=== PATIENT | female | born 1945 | race Caucasian/White ===

== ENCOUNTER 2017-04-03 18:46 | Observation (INO) ==
[2017-04-03] MEDS ORDERED: methylPREDNISolone 125 MG/2 ML VIAL IVP ONE (19:39)
--- NOTE | 2017-04-03 20:01 | Emergency Department Note ---
Disposition Clinical Impression: Community acquired pneumonia Qualifiers: Laterality: left Lung location: lower lobe of lung Qualified Code(s): J18.1 - Lobar pneumonia, unspecified organism Disposition: Admitted As Inpatient Condition: Good Referrals: Daya Crouch MD [Primary Care Provider] - Forms: ED Satisfaction Letter SOB HPI - General Chief Complaint: ED Shortness of Breath/Dyspnea Stated Complaint: Cough onset 1 week, diagnosed pneumonia urgent car Time Seen by Provider: 04/03/17 19:13 Source: patient, other (urgent care report) Mode of arrival: private vehicle Limitations: no limitations Nursing Notes Reviewed: Yes Vital Signs Reviewed: Yes - History of Present Illness Patient presents to the ED on referral from urgent care for cough and shortness of breath. Patient states symptoms been going on for 1 week. Cough is productive of yellow sputum. No chest pain. She has had some nausea but no vomiting or diarrhea or abdominal pain. She has had a rhinorrhea and sore throat as well as some chills but no fever. Denies any leg swelling. She is not a smoker. She does have a history of COPD and asthma. States she used her last 3 albuterol nebs at home earlier this week but then ran out and did not have money to get more. No history of CHF or CAD. At urgent care EKG was performed which showed a sinus rhythm with frequent PACs. This is unchanged when compared to a prior EKG from 2016. Chest x-ray at urgent care showed a left mid to lower lobe pneumonia. Patient was given a gram of Rocephin and 1 DuoNeb at urgent care. States she has been taking Mucinex DM at home as well without improvement. She is sent here from urgent care for further evaluation because she did not feel well enough to go home and wished to be admitted. Patient states she has no money to get any prescriptions filled currently. - Related Data Home Medications Medication Instructions Recorded Confirmed Albuterol Neb [Proventil Neb] 2.5 mg IH Q4HR 04/15/15 04/03/17 Citalopram [CeleXA] 20 mg PO DAILY 04/15/15 04/03/17 Metformin [Glucophage] 1,000 mg PO BIDWM 04/15/15 04/03/17 Metoprolol [Lopressor] 37.5 mg PO BID 04/15/15 04/03/17 TraZODone 100 mg PO HS 04/15/15 04/03/17 Cyclobenzaprine [Flexeril] 10 mg PO HS 05/04/15 04/03/17 Aspirin [Adult Low Dose Aspirin EC] 81 mg PO QAM 05/25/15 04/03/17 Losartan Potassium [Cozaar] 100 mg PO DAILY 05/25/15 04/03/17 Montelukast [Singulair] 10 mg PO DAILY 05/25/15 04/03/17 Potassium Gluconate [Potassium] 99 mg PO QAM 05/25/15 04/03/17 clonazePAM [Klonopin] 1 mg PO QID 04/03/17 04/03/17 Previous Rx's Medication Instructions Recorded Albuterol Sulfate [Albuterol 2 puff IH QID 2 Days inhaler 04/18/15 Inhaler] Allergies Allergy/AdvReac Type Severity Reaction Status Date / Time No Known Allergies Allergy Verified 04/03/17 17:14 Constitutional: Reports: chills. Denies: fever, weakness, weight change Eyes: Denies: eye pain, eye discharge, vision change ENT ED: Reports: throat pain. Denies: ear pain, dental pain, hearing loss, epistaxis, congestion, dysphagia Cardiovascular: Denies: chest pain, palpitations, dyspnea on exertion, edema, syncope Respiratory: Reports: cough, dyspnea, sputum production. Denies: wheezes, hemoptysis, stridor Gastrointestinal: Denies: abdominal pain, nausea, vomiting, diarrhea, constipation, hematemesis, melena, hematochezia Genitourinary: Denies: dysuria, frequency, hematuria, discharge Musculoskeletal: Denies: back pain, neck pain, arthralgia, myalgia Integumentary: Denies: rash, abrasion, lesions Neurological: Denies: headache, weakness, numbness, paresthesias, confusion, abnormal gait, vertigo Psychiatric: Denies: anxiety, depression, suicidal thoughts, homicidal thoughts , auditory hallucinations, visual hallucinations Endocrine: Denies: fatigue Hematological/Lymphatic: Denies: easy bleeding, easy bruising Allergic/Immunologic: Denies: facial swelling, urticaria Past Medical History - Past Medical History Medical history: Reports: atrial fibrillation, diabetes, hypertension Psychiatric history: Reports: anxiety, depression 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: bilateral tubal 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 Absent: tonsillomegaly, tonsillar exudate, R peritonsillar mass, L peritonsillar mass - Neck Neck exam: Present: normal inspection, full ROM, trachea midline. Absent: lymphadenopathy - Chest Chest inspection: Present: normal inspection, symmetric chest wall rise - Respiratory Respiratory exam: Present: normal lung sounds bilaterally. Absent: respiratory distress - Cardiovascular Cardiovascular exam: Present: regular rate, normal rhythm, normal heart sounds - Abdominal Exam Abdominal exam: Present: soft, Non-Tender. Absent: tenderness, distention, guarding, rebound, rigidity - Extremities Exam Extremities exam: Present: normal inspection, full ROM. Absent: tenderness, pedal edema - Back Exam Back exam: Present: normal inspection, full ROM. Absent: tenderness, CVA tenderness (R), CVA tenderness (L) - Neurological Exam Neurological exam: Present: alert, oriented X3 - Psychiatric Psychiatric exam: Present: normal affect, normal mood - Skin Skin exam: Present: warm, dry, intact, normal color Course Course Narrative: Patient presents to the ED with productive cough, chills and worsening dyspnea for 1 week with history of COPD. Chest x-ray at urgent care shows a left mid to lower lobe pneumonia. On arrival here she is not in any respiratory distress. Breath sounds are slightly diminished on the left there is no current wheezing. She is afebrile. We will check routine labs and give a dose of steroids. Given her underlying COPD she may require admission for further management of her pneumonia. - Reevaluation(s) Reevaluation #1: CBC is normal without leukocytosis. Creatinine is slightly elevated although this could be a baseline for her. BNP is minimally elevated the chest x-ray does not show any fluid overload. Troponin is negative. I spoke to the hospitalist, Dr. Weinstein, who has agreed to admit the patient. Vital Signs Temperature 97.8 F 04/03/17 18:49 Pulse Rate 81 04/03/17 18:49 Respiratory Rate 16 04/03/17 18:49 Blood Pressure 147/66 04/03/17 18:49 O2 Sat by Pulse Oximetry 100 04/03/17 18:49 Temperature 97.8 F 04/03/17 18:49 Pulse Rate 67 04/03/17 20:45 Respiratory Rate 16 04/03/17 20:45 Blood Pressure 151/61 04/03/17 20:45 O2 Sat by Pulse Oximetry 99 04/03/17 20:45 Oxygen Delivery Oxygen Delivery Room Air Shortness of Breath/Dyspnea - Differential Diagnosis Likely: acute exacerbation of chronic obstructive airways disease, pneumonia, asthma with exacerbation - Medical Records Medical records reviewed: Yes I reviewed the patient's medical records. - Lab Data Lab results reviewed: Yes I reviewed the patient's lab results. Result diagrams: 04/03/17 19:35 04/03/17 19:35 Lab Results 04/03/17 04/03/17 04/03/17 Range/Units 19:35 19:35 19:35 WBC 10.3 (4.3-11.1) K/mcL RBC 3.99 (3.82-4.97) M/mcL Hgb 11.5 (11.5-15.4) g/dL Hct 34.2 L (35.3-44.9) % MCV 85.7 (83.0-100.0) fL MCH 28.8 (28.0-33.3) pg MCHC 33.6 (31.6-35.5) g/dL RDW 13.1 (11.5-14.5) % Plt Count 195 (140-400) K/mcL MPV 11.9 (9.4-12.4) fL Immature Gran % 0.5 (0-4) % Seg Neutrophils % 68.5 % Lymphocytes % 22.7 % Monocytes % 5.5 % Eosinophils % 2.6 % Basophils % 0.2 % Neutrophils # 7.0 (1.6-8.9) K/mcL Lymphocytes # 2.3 (0.6-4.6) K/mcL Monocytes # 0.6 (0.0-1.3) K/mcL Eosinophils # 0.3 (0.0-0.6) K/mcL Basophils # 0.0 (0.0-0.2) K/mcL Sodium 140 (136-145) mEq/L Potassium 3.9 (3.5-4.5) mEq/L Chloride 107 (98-109) mEq/L Carbon Dioxide 21 (19-29) mEq/L BUN 18 (7-20) mg/dL Creatinine 1.37 H (0.57-1.11) mg/dL Est GFR ( Amer) 46 L (> 60) Est GFR (Non-Af Amer) 38 L (> 60) BUN/Creatinine Ratio 13 (6-26) Glucose 76 (70-99) mg/dL Calculated Osmolality 291 (280-300) Calcium 9.6 (8.6-10.8) mg/dL Troponin I 0.01 (0-0.03) ng/mL B-Natriuretic Peptide (0-100) pg/mL 04/03/17 Range/Units 19:35 WBC (4.3-11.1) K/mcL RBC (3.82-4.97) M/mcL Hgb (11.5-15.4) g/dL Hct (35.3-44.9) % MCV (83.0-100.0) fL MCH (28.0-33.3) pg MCHC (31.6-35.5) g/dL RDW (11.5-14.5) % Plt Count (140-400) K/mcL MPV (9.4-12.4) fL Immature Gran % (0-4) % Seg Neutrophils % % Lymphocytes % % Monocytes % % Eosinophils % % Basophils % % Neutrophils # (1.6-8.9) K/mcL Lymphocytes # (0.6-4.6) K/mcL Monocytes # (0.0-1.3) K/mcL Eosinophils # (0.0-0.6) K/mcL Basophils # (0.0-0.2) K/mcL Sodium (136-145) mEq/L Potassium (3.5-4.5) mEq/L Chloride (98-109) mEq/L Carbon Dioxide (19-29) mEq/L BUN (7-20) mg/dL Creatinine (0.57-1.11) mg/dL Est GFR ( Amer) (> 60) Est GFR (Non-Af Amer) (> 60) BUN/Creatinine Ratio (6-26) Glucose (70-99) mg/dL Calculated Osmolality (280-300) Calcium (8.6-10.8) mg/dL Troponin I (0-0.03) ng/mL B-Natriuretic Peptide 121 H (0-100) pg/mL - Radiology Data Radiology results reviewed: Yes I reviewed the patient's radiology results. Chest x-ray performed at urgent care shows opacity in left mid to lower lobe compatible with pneumonia - EKG Data EKG attestation: Yes I reviewed and interpreted this EKG. EKG shows normal: Reports: sinus rhythm Rate: Reports: normal Rhythm: Reports: NSR, PAC's Wiggins/QRS: Reports: normal When compared to previous EKG there are: no significant changes Interpretation: Reports: no acute changes, unchanged when compared to prior tracing (date) (05/25/15), nonspecific ST-T wave changes
[2017-04-03 20:36] LABS: Basophils % 0.2 %; Eosinophils # 0.3 K/mcL (0.0-0.6); Eosinophils % 2.6 %; Hematocrit 34.2 % (35.3-44.9); Hemoglobin 11.5 g/dL (11.5-15.4); Immature Granulocytes % 0.5 % (0-4); Lymphocytes # 2.3 K/mcL (0.6-4.6); Lymphocytes % 22.7 %; Mean Corpuscular HGB Conc 33.6 g/dL (31.6-35.5); Mean Corpuscular Hemoglobin 28.8 pg (28.0-33.3); Mean Corpuscular Volume 85.7 fL (83.0-100.0); Mean Platelet Volume 11.9 fL (9.4-12.4); Monocytes # 0.6 K/mcL (0.0-1.3); Monocytes % 5.5 %; Platelet Count 195 K/mcL (140-400); Red Blood Count 3.99 M/mcL (3.82-4.97); Red Cell Distribution Width 13.1 % (11.5-14.5); Segmented Neutrophils % 68.5 %
[2017-04-03 20:53] LABS: Calcium 9.6 mg/dL (8.6-10.8); Potassium 3.9 mEq/L (3.5-4.5)
[2017-04-03] MEDS ORDERED: Naloxone 0.4 MG/ML INJ IVP PRN ×2 (22:22→23:30)
[2017-04-03] MEDS ORDERED: 0.9 % Sodium Chloride 1,000 ML IVC SCH (22:30)
[2017-04-03] MEDS ORDERED: D5% in Water 1,000 ML IVC PRN (23:30)
[2017-04-03] MEDS ORDERED: *HR* Dextrose 50 % in Water (Syg) 50 ML SYRINGE IVP PRN (23:30)
[2017-04-03] MEDS ORDERED: Dextrose Gel 15 GM PO PRN ×2 (23:30)
[2017-04-04] MEDS: 0.9 % Sodium Chloride 1,000 ML IVC SCH ×2 (01:33→14:04)
[2017-04-04] MEDS: Ipratropium/Albuterol Neb 3 ML IH SCH ×3 (02:58→12:39)
[2017-04-04] MEDS ORDERED: *HR* Metformin 500 MG TABLET PO SCH (08:00)
[2017-04-04] MEDS: Insulin LISPRO 300 UNITS/3 ML VIAL SQ SCH ×3 (08:41→17:18)
[2017-04-04] MEDS: clonazePAM 0.5 MG TABLET PO SCH ×3 (08:43→20:27)
[2017-04-04] MEDS: Aspirin Enteric Coated 81 MG Tablet PO SCH (08:44)
[2017-04-04] MEDS: (Potassium Gluconate [Potassium] 99 MG) PO SCH (08:46)
[2017-04-04] MEDS ORDERED: Benzonatate 100 MG CAPSULE PO PRN (09:02)
[2017-04-04] MEDS: *HR* Pioglitazone 15 MG TABLET PO SCH (10:25)
--- NOTE | 2017-04-04 15:59 | Internal Med History&Physical ---
Date of Encounter: 04/04/17 Time of Encounter: 15:15 Assessment and Plan (1) Pneumonia Current visit: No Status: Acute She will be given Rocephin and Zithromax with lactobacillus. Chest CT will be done to further evaluate. Qualifiers: Pneumonia type: due to unspecified organism Laterality: left Lung location: unspecified part of lung Qualified Code(s): J18.9 - Pneumonia, unspecified organism (2) CKD (chronic kidney disease) stage 3, GFR 30-59 ml/min Current visit: Yes Status: Acute We will monitor renal indices as needed. (3) Hypertension Current visit: Yes Status: Acute Qualifiers: Qualified Code(s): I10 - Essential (primary) hypertension (4) DM type 2 (diabetes mellitus, type 2) Current visit: Yes Status: Chronic Continue metformin and Actos. Will do Accu-Cheks with SSI. Qualifiers: Diabetes mellitus complication status: with kidney complications Diabetes mellitus complication detail: with chronic kidney disease Diabetes mellitus skilled nursing insulin use: without termite control servicer use Chronic kidney disease stage: stage 3 (moderate) Qualified Code(s): E11.22 - Type 2 diabetes mellitus with diabetic chronic kidney disease; N18.3 - Chronic kidney disease, stage 3 ( moderate); N18.3 - Chronic kidney disease, stage 3 (moderate) (5) Weight loss Current visit: Yes Status: Acute TSH was normal at 3.600 on 12/12/2016. Will proceed with chest CT to further evaluate. Internal Medicine - H&P: HPI Chief complaint: cough Admitted From: Emergency Dept Plans for Post Hospital Care: Home History of present illness: Ms. Toro is a 71 year old female who came to emergency room from a local urgent care stating she had one week history of cough productive of yellow sputum. She had diarrhea and chills but denies vomiting or pain in her abdomen or chest. She was diagnosed with left lung pneumonia at urgent care and referred to emergency room. She was admitted to [facility] floor for ongoing care needs. She states she smoked from age [age] a total of 34 years up to 1 pack per day. She had PFTs many years ago and was told she had asthma and COPD. She does not wear home oxygen. Past Med Surg Social Fam HX - Past Medical History Medical history: atrial fibrillation, cancer, diabetes, hypertension Psychiatric history: anxiety, depression - Social History Smoking Status: Never smoker Smokeless Tobacco Status: No Alcohol use: none Drug use: none Internal Medicine - H&P: Meds Albuterol Neb [Proventil Neb] 2.5 mg IH Q4HR 04/15/15 [History] Citalopram [CeleXA] 20 mg PO DAILY 04/15/15 [History] Metformin [Glucophage] 1,000 mg PO BIDWM 04/15/15 [History] Metoprolol [Lopressor] 37.5 mg PO BID 04/15/15 [History] TraZODone 100 mg PO HS 04/15/15 [History] Albuterol Sulfate [Albuterol Inhaler] 2 puff IH QID 2 Days inhaler 04/18/15 [Rx ] Cyclobenzaprine [Flexeril] 10 mg PO HS 05/04/15 [History] Aspirin [Adult Low Dose Aspirin EC] 81 mg PO QAM 05/25/15 [History] Losartan Potassium [Cozaar] 100 mg PO DAILY 05/25/15 [History] Montelukast [Singulair] 10 mg PO DAILY 05/25/15 [History] Potassium Gluconate [Potassium] 99 mg PO QAM 05/25/15 [History] clonazePAM [Klonopin] 1 mg PO QID 04/03/17 [History] Pioglitazone [Actos] 45 mg PO DAILY 04/04/17 [History] 3 Allergy/AdvReac Type Severity Reaction Status Date / Time No Known Allergies Allergy Verified 04/03/17 17:14 All Systems PM: A 10-system review of systems was performed and is negative for pertinent findings except as documented above in the HPI. Review of systems: Gen.: She states her weight has decreased approximately 12 pounds in the past week. She states she has not been eating much in the past week due to present illness. She reports weighing 200 pounds one year ago. Cardiovascular: She has history of hypertension but denies UT heart failure angina DVT or pulmonary embolus. She had limited echocardiogram 01/18/2015 which showed LVEF of 60% with no pericardial effusion present. She had an echocardiogram 10/17/2014 which showed LVEF 55-60% with indeterminant diastolic function. There was mild TR. She had Regadenoson stress test 09/18/2015 which showed frequent PACs, LVEF greater than 70%, small fixed apical inferior and apical fixed defect suggestive of artifact, and perfusion imaging negative for ischemia or infarct. Respiratory: As per history of present illness GI: She has had cholecystectomy. She denies disorders of her liver or exocrine pancreas. : She has been diagnosed with chronic kidney disease stage III. 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 She denies other kidney or bladder disorders Neurologic: She denies large distribution strokes or seizures. Endocrine: She was diagnosed with DM 2 in 1992. She has hyperlipidemia but denies thyroid disease Hematology/oncology: She had right mastectomy April 2014 for breast cancer. She believes it was curative. She denies other internal malignancies or anemia Psychiatric: She has anxiety and depression with panic attacks Musk skeletal: She has chronic low back pain. She denies gout or other bone joint or muscle disorders. - Constitutional Vitals: Temp Pulse Resp BP Pulse Ox 98.2 F 57 16 110/65 98 04/04/17 14:41 04/04/17 14:41 04/04/17 14:41 04/04/17 14:41 04/04/17 14:41 Exam: Gen.: She is a well-developed well-nourished female lying in bed and appears in no acute distress HEENT: Head is atraumatic and normocephalic. Eyes: EOMI. There is no scleral icterus. Mouth: Mucosa is moist. Neck: Supple and nontender. There is no thyromegaly or adenopathy noted. Heart: Regular without murmurs gallops or ectopics Lungs: No wheezes or crackles are heard. Abdomen: Soft and nontender. No masses or guarding are noted. Extremities: There is no cyanosis edema or clubbing noted. Dorsalis pedis and posttibial pulses are 1-2 over 2 bilaterally. Neurologic: Mental status: She is talkative and a good historian. Cranial nerves: Smile is symmetric. Forehead wrinkles bilaterally. Tongue protrudes midline. EOMI. Motor: There is no pronator drift. Cerebellar: Finger to nose is intact bilaterally. Skin: Warm and dry Internal Med - H&P Results - Labs CBC & Chem 7: 04/03/17 19:35 04/03/17 19:35 - VTE Reasons for not Prescribing Prophylaxis: Treatment not Indicated - Low risk for VTE
[2017-04-04] MEDS: Budesonide/Formoterol 160/4.5 MDI IH SCH ×2 (17:41→23:17)
[2017-04-04] MEDS: Benzonatate 100 MG CAPSULE PO SCH (20:27)
[2017-04-04] MEDS ORDERED: traZODone 50 MG TABLET PO SCH (21:00)
[2017-04-04] MEDS ORDERED: Insulin LISPRO 300 UNITS/3 ML VIAL SQ SCH (21:00)
[2017-04-05] MEDS: clonazePAM 0.5 MG TABLET PO SCH ×2 (02:48→10:00)
[2017-04-05 06:37] VITALS: BP 126/97
--- NOTE | 2017-04-05 09:57 | Discharge Summary ---
Date of Encounter: 04/05/17 Time of Encounter: 09:45 - Discharge Diagnosis (1) Pneumonia Priority: Primary Status: Acute Qualifiers: Pneumonia type: due to unspecified organism Laterality: left Lung location: unspecified part of lung Qualified Code(s): J18.9 - Pneumonia, unspecified organism (2) CKD (chronic kidney disease) stage 3, GFR 30-59 ml/min Priority: Secondary Status: Chronic (3) Hypertension Priority: Secondary Status: Chronic Qualifiers: Hypertension type: essential hypertension Qualified Code(s): I10 - Essential (primary) hypertension (4) DM type 2 (diabetes mellitus, type 2) Priority: Secondary Status: Chronic Qualifiers: Diabetes mellitus complication status: with kidney complications Diabetes mellitus complication detail: with chronic kidney disease Diabetes mellitus mcc insulin use: without mcc use Chronic kidney disease stage: stage 3 (moderate) Qualified Code(s): E11.22 - Type 2 diabetes mellitus with diabetic chronic kidney disease; N18.3 - Chronic kidney disease, stage 3 ( moderate); N18.3 - Chronic kidney disease, stage 3 (moderate) (5) Weight loss Priority: Secondary Status: Acute - Discharge Medications Prescriptions: Cefuroxime PO [Ceftin] 500 mg PO Q12HR #10 tablet Azithromycin [Zithromax] 250 mg PO DAILY #5 tablet Benzonatate [Tessalon] 100 mg PO TID #15 capsule Lactobacillus [Culturelle] 1 each PO BID #10 cap.[email or web address] Home Medications: Albuterol Neb [Proventil Neb] 2.5 mg IH Q4HR 04/15/15 [History] Citalopram [CeleXA] 20 mg PO DAILY 04/15/15 [History] Metformin [Glucophage] 1,000 mg PO BIDWM 04/15/15 [History] Metoprolol [Lopressor] 37.5 mg PO BID 04/15/15 [History] TraZODone 100 mg PO HS 04/15/15 [History] Albuterol Sulfate [Albuterol Inhaler] 2 puff IH QID 2 Days inhaler 04/18/15 [Rx ] Cyclobenzaprine [Flexeril] 10 mg PO HS 05/04/15 [History] Aspirin [Adult Low Dose Aspirin EC] 81 mg PO QAM 05/25/15 [History] Losartan Potassium [Cozaar] 100 mg PO DAILY 05/25/15 [History] Montelukast [Singulair] 10 mg PO DAILY 05/25/15 [History] Potassium Gluconate [Potassium] 99 mg PO QAM 05/25/15 [History] clonazePAM [Klonopin] 1 mg PO QID 04/03/17 [History] Pioglitazone [Actos] 45 mg PO DAILY 04/04/17 [History] Azithromycin [Zithromax] 250 mg PO DAILY #5 tablet 04/05/17 [Rx] Benzonatate [Tessalon] 100 mg PO TID #15 capsule 04/05/17 [Rx] Budesonide/Formoterol 160/4.5 [Symbicort 160/4.5] 2 puff IH BIDR 5 Days inhaler 04/05/17 [Rx] Cefuroxime PO [Ceftin] 500 mg PO Q12HR #10 tablet 04/05/17 [Rx] Lactobacillus [Culturelle] 1 each PO BID #10 cap.sprink 04/05/17 [Rx] Allergies/Adverse Reactions: 3 Allergy/AdvReac Type Severity Reaction Status Date / Time No Known Allergies Allergy Verified 04/03/17 17:14 Procedures/tests Complete & Pending: Procedures Performed prior 72 hours Category Date Time Status CT chest wo con [CT] Routine Cat Scan 04/04/17 15:52 Completed Date of admission: 04/03/17 22:26 Primary care physician: Daya Crouch Consults: 04/04/17 00:01 Consult to Nutrition [CONS] Routine Comment: Consulting Provider: NUTRITION Reason for Dietary Consult: MST Score - Patient Status Disposition: Home, Self-Care Condition: Good Functional capacity at discharge: independent ambulation Overall status at discharge: patient is progressing back to baseline - Discharge Instructions Follow Up With: Daya Crouch MD [Primary Care Provider] - 1 week - Diet and Activity Activity: resume usual activities as tolerated Diet: advance to your usual diet Hospital course: Ms. Toro is a 71 year old female who came to emergency room from a local urgent care stating she had one week history of cough productive of yellow sputum. She had diarrhea and chills but denies vomiting or pain in her abdomen or chest. She was diagnosed with left lung pneumonia at urgent care and referred to emergency room. She was admitted to [facility] for ongoing care needs. Initial orders written by the emergency room physician. I saw her on April 04 and performed the history and physical. Chest CT was done to further evaluate for pneumonia and weight loss. There was irregular patchy airspace opacities in the superior segment of the left lower lobe. Several small noncalcified nodules in the left lower lobe measuring up to 4 mm most suggestive of an infectious process including fungal and atypical etiologies were noted. Radiographic follow-up until resolution was recommended. I will let her PCP Dr. Crouch order repeat chest CT in a few weeks. She remained stable and felt improved when I saw her on April 05. She will be discharged home and follow with her PCP Dr. Crouch within 1 week. She will be prescribed a 5 day course of antibiotic and probiotic at discharge. She will continue Symbicort inhaler and Tessalon Perles for 5 days also. Room air oximetry will be checked on a 6 minute walk prior to discharge. - Time Spent with Patient Total time spent providing and/or coordinating discharge services: - Constitutional Vitals: Temp Pulse Resp BP Pulse Ox 98.1 F 62 18 126/97 96 04/05/17 06:35 04/05/17 06:35 04/05/17 06:35 04/05/17 06:35 04/05/17 06:35 - VTE Reasons for not Prescribing Prophylaxis: Treatment not Indicated - Low risk for VTE
[2017-04-05] MEDS: Benzonatate 100 MG CAPSULE PO SCH (10:00)
[2017-04-05] MEDS: Aspirin Enteric Coated 81 MG Tablet PO SCH (10:02)
[2017-04-05] MEDS: *HR* Pioglitazone 15 MG TABLET PO SCH (10:03)
[2017-04-05] MEDS: (Potassium Gluconate [Potassium] 99 MG) PO SCH (10:07)
[2017-04-05] MEDS: Budesonide/Formoterol 160/4.5 MDI IH SCH (10:13)
== END 2017-04-05 11:50 | disposition home or self-care (01) ==
LOC: INPPIK 18:46 → EMEROOPIK 18:46 → INPPIK 23:10
PROVIDERS: ADMIT Internal Medicine; ATTEND Internal Medicine

== ENCOUNTER 2017-12-24 01:34 | Observation (INO) ==
[2017-12-24] MEDS ORDERED: 0.9 % Sodium Chloride 500 ML IVC ONE ×2 (01:59→03:03)
--- NOTE | 2017-12-24 02:19 | Emergency Department Note ---
Disposition Clinical Impression: Palpitation, [place]APO[place]ON (acute kidney injury) Disposition: Admitted As Inpatient Condition: Good Forms: ED Satisfaction Letter Arrhythmia/Palpitations HPI - General Chief Complaint: ED Chest Pain Time Seen by Provider: 12/24/17 01:56 Source: patient Mode of arrival: private vehicle Limitations: no limitations Nursing Notes Reviewed: Yes Vital Signs Reviewed: Yes - History of Present Illness HPI Narrative: Patient presents to the ED complaining of palpitations and low back pain. She states she has had a sensation that her heart was racing and skipping beats it started around 8 PM. She states she checked her blood pressure and heart rate at home and her blood pressure was low, 90s over 40s and her heart rate was high , as high as in the 150s around 1 AM. She also complains of low back pain that is a dull ache across her lower back. She states that she has been doing very strenuous housecleaning today which is more active than she has typically been in over a year. She denies any chest pain. She does report some chronic shortness of breath with exertion that has been going on for years and has not changed. She denies any lower extremity swelling. She has had an occasional dry cough. No fever or chills. No lightheadedness or dizziness. No visual disturbances. No nausea or vomiting. She reports a history of A. fib and PE that was diagnosed in July while she was in [place]. Her metoprolol was increased at that time to 100 mg twice a day and she was started on Eliquis. She is already on losartan 100 mg for her hypertension as well. She also took a dose of her usual clonazepam in case her symptoms were due to anxiety. She also has a history of hypothyroidism and is on 25 g of Synthroid. - Related Data Home Medications Medication Instructions Recorded Confirmed Albuterol Neb [Proventil Neb] 2.5 mg IH Q4HR 04/15/15 12/24/17 Metoprolol [Lopressor] 100 mg PO BID 04/15/15 12/24/17 TraZODone 100 mg PO HS 04/15/15 12/24/17 Cyclobenzaprine [Flexeril] 10 mg PO HS 05/04/15 12/24/17 Losartan Potassium [Cozaar] 100 mg PO DAILY 05/25/15 12/24/17 Montelukast [Singulair] 10 mg PO DAILY 05/25/15 12/24/17 Potassium Gluconate [Potassium] 99 mg PO QAM 05/25/15 12/24/17 clonazePAM [Klonopin] 1 mg PO QID 04/03/17 12/24/17 Pioglitazone [Actos] 45 mg PO DAILY 04/04/17 12/24/17 Apixaban [Eliquis] 5 mg PO DAILY 12/24/17 12/24/17 Atorvastatin [Lipitor] 40 mg PO HS 12/24/17 12/24/17 Escitalopram [Lexapro] 20 mg PO DAILY 12/24/17 12/24/17 Gabapentin [Neurontin] 100 mg PO TID 12/24/17 12/24/17 Glimepiride [Amaryl] 4 mg PO BID 12/24/17 12/24/17 Levothyroxine [Synthroid] 25 mcg PO DAILY 12/24/17 12/24/17 Loratadine [Claritin] 10 mg PO DAILY 12/24/17 12/24/17 Previous Rx's Medication Instructions Recorded Albuterol Sulfate [Albuterol 2 puff IH QID 2 Days inhaler 04/18/15 Inhaler] Budesonide/Formoterol 160/4.5 2 puff IH BIDR 5 Days inhaler 04/05/17 [Symbicort 160/4.5] Allergies Allergy/AdvReac Type Severity Reaction Status Date / Time No Known Allergies Allergy Verified 04/03/17 17:14 Constitutional: Denies: fever, chills, weakness, weight change Eyes: Denies: eye pain, eye discharge, vision change ENT ED: Denies: ear pain, throat pain, dental pain, hearing loss, epistaxis, congestion, dysphagia Cardiovascular: Reports: as per HPI, palpitations, dyspnea on exertion. Denies : chest pain, edema, syncope Respiratory: Reports: cough. Denies: dyspnea, wheezes, hemoptysis, stridor, sputum production Gastrointestinal: Denies: abdominal pain, nausea, vomiting, diarrhea, constipation, hematemesis, melena, hematochezia Genitourinary: Denies: dysuria, frequency, hematuria, discharge Musculoskeletal: Denies: back pain, neck pain, arthralgia, myalgia Integumentary: Denies: rash, abrasion, lesions Neurological: Denies: headache, weakness, numbness, paresthesias, confusion, abnormal gait, vertigo Psychiatric: Denies: anxiety, depression, suicidal thoughts, homicidal thoughts , auditory hallucinations, visual hallucinations Endocrine: Denies: fatigue Hematological/Lymphatic: Denies: easy bleeding, easy bruising Allergic/Immunologic: Denies: facial swelling, urticaria Past Medical History - Past Medical History Medical history: Reports: atrial fibrillation, cancer, diabetes, hypertension Psychiatric history: Reports: anxiety, depression 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: bilateral tubal ligation - Social History Smoking Status: Never smoker Smokeless Tobacco Status: No Alcohol use: Reports: none Drug use: Reports: none Physical Exam - General Limitations: no limitations General appearance: alert, in no apparent distress - Head Head exam: atraumatic, normocephalic, normal inspection - Eye Eye exam: Present: normal appearance, PERRL, EOMI - ENT ENT exam: normal exam, normal oropharynx, mucous membranes moist - Neck Neck exam: Present: normal inspection, full ROM, trachea midline - Chest Chest inspection: Present: normal inspection, symmetric chest wall rise - Respiratory Respiratory exam: Present: normal lung sounds bilaterally - Cardiovascular Cardiovascular exam: Present: regular rate, normal rhythm, normal heart sounds - Abdominal Exam Abdominal exam: Present: soft, Non-Tender. Absent: tenderness, distention, guarding, rebound, rigidity - Extremities Exam Extremities exam: Present: normal inspection, full ROM. Absent: tenderness, pedal edema - Back Exam Back exam: Present: normal inspection, full ROM. Absent: tenderness - Neurological Exam Neurological exam: Present: alert, oriented X3 - Psychiatric Psychiatric exam: Present: normal affect, normal mood - Skin Skin exam: Present: warm, dry, intact, normal color Course Course Narrative: Patient presents to the ED complaining of palpitations, low back pain with tachycardia and hypotension at home. On arrival heart rate was in the low 1 teens and initial blood pressure reading was low. On exam she appeared clinically dehydrated. EKG showed a flutter/tachycardia with RVR with a rate of 117. Will check laboratory studies, obtain EKG and try a fluid bolus. Symptoms may be due to dehydration versus true atrial arrhythmia with RVR requiring antiarrhythmics. - Reevaluation(s) Reevaluation #1: Heart rate has decreased and blood pressure has improved with fluid bolus. Patient appears to be fluctuating between A. fib. Chest x-ray is normal. CBC and BMP are unremarkable other than creatinine is increased above her baseline. BNP is only minimally elevated at 109. Troponin and TSH are still pending at this time. Given the patient seems to be responding well to IV fluids and do not feel that antiarrhythmics are warranted. Given her increased creatinine however I feel she would benefit from continued IV fluids including overnight observation for continued hydration and repeat lab work as well as continued monitoring of her heart rate and blood pressure. Discussed these concerns with the patient and she is in agreement. Will await TSH and troponin in case these labs are abnormal and would affect her disposition. Time: 03:05 Reevaluation #2: Troponin is normal. TSH is elevated at 7. Her blood pressure and heart rate have continued to improve. Patient is agreeable to admission for continued IV hydration overnight with repeat laboratory studies in the morning. I spoke to the hospitalist, Dr. Weinstien, who has agreed to accept the patient. She will be given Tylenol for her low back pain. Time: 03:29 Vital Signs Temperature 98.9 F 12/24/17 01:37 Pulse Rate 115 12/24/17 01:37 Respiratory Rate 20 12/24/17 01:37 Blood Pressure 76/41 12/24/17 01:37 O2 Sat by Pulse Oximetry 94 12/24/17 01:37 Temperature 98.8 F 12/24/17 02:35 Pulse Rate 100 12/24/17 03:26 Respiratory Rate 20 12/24/17 03:26 Blood Pressure 122/74 12/24/17 03:26 O2 Sat by Pulse Oximetry 97 12/24/17 03:26 Oxygen Delivery Oxygen Delivery Room Air Arrhythmia/Palpitations - Differential Diagnosis Differential Diagnosis: Likely: palpitations, artial arrhythmia, metabolic/ electrolyte disturbance - Medical Records Medical records reviewed: Yes I reviewed the patient's medical records. - Lab Data Lab results reviewed: Yes I reviewed the patient's lab results. Result diagrams: 12/24/17 02:25 12/24/17 02:25 Lab Results 12/24/17 12/24/17 12/24/17 Range/Units 02:25 02:25 02:25 WBC 12.3 H (4.3-11.1) K/mcL RBC 3.94 (3.82-4.97) M/mcL Hgb 11.4 L (11.5-15.4) g/dL Hct 34.7 L (35.3-44.9) % MCV 88.1 (83.0-100.0) fL MCH 28.9 (28.0-33.3) pg MCHC 32.9 (31.6-35.5) g/dL RDW 13.9 (11.5-14.5) % Plt Count 154 (140-400) K/mcL MPV 11.6 (9.4-12.4) fL Immature Gran % 1.1 (0-4) % Seg Neutrophils % 63.7 % Lymphocytes % 26.8 % Monocytes % 6.4 % Eosinophils % 1.7 % Basophils % 0.3 % Neutrophils # 7.8 (1.6-8.9) K/mcL Lymphocytes # 3.3 (0.6-4.6) K/mcL Monocytes # 0.8 (0.0-1.3) K/mcL Eosinophils # 0.2 (0.0-0.6) K/mcL Basophils # 0.0 (0.0-0.2) K/mcL PT 18.4 H (9.4-12.1) Seconds INR 1.6 APTT 37.6 H (26.0-36.0) Seconds Sodium 136 (136-145) mEq/L Potassium 3.7 (3.5-5.1) mEq/L Chloride 103 (98-107) mEq/L Carbon Dioxide 25 (23-29) mEq/L BUN 23 (8-23) mg/dL Creatinine 1.71 H (0.60-1.20) mg/dL Est GFR ( Amer) 36 L (> 60) Est GFR (Non-Af Amer) 29 L (> 60) BUN/Creatinine Ratio 13 (6-26) Glucose 128 H (70-105) mg/dL Calculated Osmolality 287 (280-300) Calcium 9.1 (8.6-10.3) mg/dL Troponin I < 0.03 (< 0.04) ng/mL B-Natriuretic Peptide (Less than 100) pg/mL TSH (0.340-5.600) mcIU/mL 12/24/17 12/24/17 Range/Units 02:27 02:27 WBC (4.3-11.1) K/mcL RBC (3.82-4.97) M/mcL Hgb (11.5-15.4) g/dL Hct (35.3-44.9) % MCV (83.0-100.0) fL MCH (28.0-33.3) pg MCHC (31.6-35.5) g/dL RDW (11.5-14.5) % Plt Count (140-400) K/mcL MPV (9.4-12.4) fL Immature Gran % (0-4) % Seg Neutrophils % % Lymphocytes % % Monocytes % % Eosinophils % % Basophils % % Neutrophils # (1.6-8.9) K/mcL Lymphocytes # (0.6-4.6) K/mcL Monocytes # (0.0-1.3) K/mcL Eosinophils # (0.0-0.6) K/mcL Basophils # (0.0-0.2) K/mcL PT (9.4-12.1) Seconds INR APTT (26.0-36.0) Seconds Sodium (136-145) mEq/L Potassium (3.5-5.1) mEq/L Chloride (98-107) mEq/L Carbon Dioxide (23-29) mEq/L BUN (8-23) mg/dL Creatinine (0.60-1.20) mg/dL Est GFR ( Amer) (> 60) Est GFR (Non-Af Amer) (> 60) BUN/Creatinine Ratio (6-26) Glucose (70-105) mg/dL Calculated Osmolality (280-300) Calcium (8.6-10.3) mg/dL Troponin I (< 0.04) ng/mL B-Natriuretic Peptide 109 H (Less than 100) pg/mL TSH 7.059 H (0.340-5.600) mcIU/mL - Radiology Data Radiology results reviewed: Yes I reviewed the patient's radiology results. ITS Impressions Chest X-Ray 12/24/17 02:18 IMPRESSION: No acute findings. D/ / Rayna Tee MD / Rayna Tee MD Interpreting Provider: Rayna Tee MD - EKG Data EKG attestation: Yes I reviewed and interpreted this EKG. Rate: tachycardia Rhythm: A. flutter, arrhythmia [place]/QRS: normal When compared to previous EKG there are: changes noted (prior ectopic atrial rhythm with PACs, normal rate)
[2017-12-24 02:44] LABS: INR 1.6; Prothrombin Time 18.4 Seconds (9.4-12.1)
[2017-12-24 02:46] LABS: Activated Partial Thrombo Time 37.6 Seconds (26.0-36.0)
[2017-12-24 02:54] LABS: BUN/Creatinine Ratio 13 (6-26); Basophils % 0.3 %; Blood Urea Nitrogen 23 mg/dL (8-23); Calcium 9.1 mg/dL (8.6-10.3); Carbon Dioxide 25 mEq/L (23-29); Chloride 103 mEq/L (98-107); Eosinophils # 0.2 K/mcL (0.0-0.6); Eosinophils % 1.7 %; Glucose 128 mg/dL (70-105); Hematocrit 34.7 % (35.3-44.9); Hemoglobin 11.4 g/dL (11.5-15.4); Immature Granulocytes % 1.1 % (0-4); Lymphocytes # 3.3 K/mcL (0.6-4.6); Lymphocytes % 26.8 %; Mean Corpuscular HGB Conc 32.9 g/dL (31.6-35.5); Mean Corpuscular Hemoglobin 28.9 pg (28.0-33.3); Mean Corpuscular Volume 88.1 fL (83.0-100.0); Mean Platelet Volume 11.6 fL (9.4-12.4); Monocytes # 0.8 K/mcL (0.0-1.3); Monocytes % 6.4 %; Osmolality,Calculated 287 (280-300); Platelet Count 154 K/mcL (140-400); Potassium 3.7 mEq/L (3.5-5.1); Red Blood Count 3.94 M/mcL (3.82-4.97); Red Cell Distribution Width 13.9 % (11.5-14.5); Segmented Neutrophils % 63.7 %; Sodium 136 mEq/L (136-145); eGFR For Non-African Americans 29 (> 60)
[2017-12-24 02:57] LABS: Neutrophils # 7.8 K/mcL (1.6-8.9)
[2017-12-24 03:01] LABS: Troponin I < 0.03 ng/mL (< 0.04)
[2017-12-24] MEDS ORDERED: Acetaminophen 325 MG TABLET PO ONE (03:26)
[2017-12-24] MEDS ORDERED: Naloxone 0.4 MG/ML INJ IVP PRN ×2 (03:31→04:21)
[2017-12-24] MEDS ORDERED: 0.9 % Sodium Chloride 1,000 ML IVC SCH (03:45)
[2017-12-24] MEDS ORDERED: Albuterol 2.5 MG/3 ML NEBULIZER IH SCH (04:21)
[2017-12-24] MEDS: 0.9 % Sodium Chloride 1,000 ML IVC SCH ×2 (05:16→15:01)
[2017-12-24 06:24] LABS: Calcium 8.5 mg/dL (8.6-10.3); Potassium 3.6 mEq/L (3.5-5.1)
[2017-12-24] MEDS ORDERED: Levothyroxine 25 MCG TABLET PO SCH (06:30)
[2017-12-24] MEDS ORDERED: POTASSIUM PO SCH (09:00)
[2017-12-24] MEDS ORDERED: Loratadine 10 MG TABLET PO SCH (09:00)
[2017-12-24] MEDS ORDERED: *HR* Glimepiride 2 MG TABLET PO SCH (09:00)
[2017-12-24] MEDS ORDERED: *HR* Pioglitazone 15 MG TABLET PO SCH (09:00)
[2017-12-24] MEDS ORDERED: *HR* Glimepiride 4 MG TABLET PO SCH (09:00)
[2017-12-24] MEDS ORDERED: Apixaban 5 MG TABLET PO SCH (09:00)
[2017-12-24] MEDS: Gabapentin 100 MG CAPSULE PO SCH ×2 (09:06→15:02)
[2017-12-24] MEDS: clonazePAM 0.5 MG TABLET PO SCH ×2 (09:07→13:06)
[2017-12-24] MEDS ORDERED: *HR* Dextrose 50 % in Water (Syg) 50 ML SYRINGE IVP PRN (09:33)
[2017-12-24] MEDS ORDERED: Dextrose Gel 15 GM/37.5 ML TUBE PO PRN ×2 (09:33)
[2017-12-24] MEDS ORDERED: D5% in Water 1,000 ML IVC PRN (09:33)
[2017-12-24] MEDS ORDERED: Budesonide/Formoterol 160/4.5 1 PUFF INH IH SCH (10:00)
[2017-12-24] MEDS ORDERED: Insulin LISPRO 300 UNITS/3 ML VIAL SQ SCH ×2 (11:30→21:00)
--- NOTE | 2017-12-24 15:01 | Internal Med History&Physical ---
Date of Encounter: 12/24/17 Time of Encounter: 14:35 Assessment and Plan (1) Atrial fibrillation with RVR Current visit: Yes Status: Acute Her rate has now slowed to approximately 80/m. Since this is the third episode of symptomatic RVR she was agreeable to start low-dose Lanoxin to see if rate can be better controlled. She will continue Eliquis and metoprolol. (2) Hypothyroidism Current visit: Yes Status: Chronic TSH was minimally elevated at 7.059. Her PCP can decide if Synthroid dose should be increased. Qualifiers: Hypothyroidism type: unspecified Qualified Code(s): E03.9 - Hypothyroidism , unspecified (3) CKD (chronic kidney disease) stage 3, GFR 30-59 ml/min Current visit: No Status: Chronic Her PCP can monitor renal indices (4) Hypertension Current visit: No Status: Chronic Continue Lopressor and Cozaar. Qualifiers: Hypertension type: essential hypertension Qualified Code(s): I10 - Essential (primary) hypertension Internal Medicine - H&P: HPI History of present illness: Ms. Toro is a 72 year old female who came to emergency room stating she had onset of sensation of rapid heart rate approximately 8 PM while doing usual leisure activities. She found blood pressure low at 90s/40s and found her pulse rate up to 150. When symptoms persisted for a few hours she came to emergency room. She was found to have AF with RVR and was admitted to [facility] floor for ongoing care needs. She was diagnosed with atrial fibrillation initially July 2017 while in [place]. She had pulmonary embolism also documented during the same hospital stay. She has been on Eliquis since that incident and denies missing doses. She has had rare episodes of sensation of tachycardia as per history of present illness. She has history of hypertension but denies IA heart failure or angina. She does have dyspnea on exertion. She had limited echocardiogram 01/18/2015 which showed LVEF of 60% with no pericardial effusion present. She had an echocardiogram 10/17/2014 which showed LVEF 55-60% with indeterminant diastolic function. There was mild TR. She had Regadenoson stress test 09/18/2015 which showed frequent PACs, LVEF greater than 70%, small fixed apical inferior and apical fixed defect suggestive of artifact, and perfusion imaging negative for ischemia or infarct. She states she feels improved at the present time and wishes to be discharged home. Past Med Surg Social Fam HX - Past Medical History Medical history: atrial fibrillation, cancer, diabetes, hypertension Additional medical history: Breast Ca., Hypothyroid Psychiatric history: anxiety, depression - Past Surgical History Surgical History: appendectomy, cholecystectomy Additional surgical history: RT MASTECTOMY, NASAL SURGERY TO REMOVE SMALL MASS, rotator cuff Right, tubal ligation, tumors removed from feet - Social History Smoking Status: Never smoker Smokeless Tobacco Status: No Alcohol use: none Drug use: none - Family History Mother Living Status: Hx Family Cardiac Disorders: Yes (Pacemaker) Father Living Status: Hx Family Cancer: Yes (Rectal Ca.) Internal Medicine - H&P: Meds Albuterol Neb [Proventil Neb] 2.5 mg IH Q4HR 04/15/15 [History] Metoprolol [Lopressor] 100 mg PO BID 04/15/15 [History] TraZODone 100 mg PO HS 04/15/15 [History] Albuterol Sulfate [Albuterol Inhaler] 2 puff IH QID 2 Days inhaler 04/18/15 [Rx ] Cyclobenzaprine [Flexeril] 10 mg PO HS 05/04/15 [History] Losartan Potassium [Cozaar] 100 mg PO DAILY 05/25/15 [History] Montelukast [Singulair] 10 mg PO DAILY 05/25/15 [History] Potassium Gluconate [Potassium] 99 mg PO QAM 05/25/15 [History] clonazePAM [Klonopin] 1 mg PO QID 04/03/17 [History] Pioglitazone [Actos] 45 mg PO DAILY 04/04/17 [History] Budesonide/Formoterol 160/4.5 [Symbicort 160/4.5] 2 puff IH BIDR 5 Days inhaler 04/05/17 [Rx] Apixaban [Eliquis] 5 mg PO DAILY 12/24/17 [History] Atorvastatin [Lipitor] 40 mg PO HS 12/24/17 [History] Escitalopram [Lexapro] 20 mg PO DAILY 12/24/17 [History] Gabapentin [Neurontin] 100 mg PO TID 12/24/17 [History] Glimepiride [Amaryl] 0.5 mg PO BID 12/24/17 [History] Levothyroxine [Synthroid] 25 mcg PO DAILY 12/24/17 [History] Loratadine [Claritin] 10 mg PO DAILY 12/24/17 [History] 3 Allergy/AdvReac Type Severity Reaction Status Date / Time No Known Allergies Allergy Verified 04/03/17 17:14 All Systems PM: A 10-system review of systems was performed and is negative for pertinent findings except as documented above in the HPI. Review of systems: Review of systems from her March 2017 [facility] hospitalization were reviewed and revised as below. Gen.: She states her weight has decreased approximately 12 pounds in the past week. She states she has not been eating much in the past week due to present illness. She reports weighing 200 pounds one year ago. Cardiovascular: As per history of present illness Respiratory: She smoked from age [age] a total of 34 years up to 1 pack per day. She had PFTs many years ago and was told she had asthma and COPD. She does not wear home oxygen. GI: She has had cholecystectomy. She denies disorders of her liver or exocrine pancreas. : She has been diagnosed with chronic kidney disease stage III. She does not follow with a employment agency manager. She denies other kidney or bladder disorders Neurologic: She denies large distribution strokes or seizures. Endocrine: She was diagnosed with DM 2 in 1992. She has hyperlipidemia but denies thyroid disease Hematology/oncology: She had right mastectomy April 2014 for breast cancer. She believes it was curative. She denies other internal malignancies or anemia Psychiatric: She has anxiety and depression with panic attacks Musk skeletal: She has chronic low back pain. She denies gout or other bone joint or muscle disorders. - Constitutional Vitals: Temp Pulse Resp BP Pulse Ox 98.0 F 82 14 120/72 91 12/24/17 10:13 12/24/17 10:13 12/24/17 10:35 12/24/17 10:13 12/24/17 10:35 Exam: Gen.: She is well-developed overweight female resting comfortably in bed who appears in no acute distress at present time HEENT: Head is atraumatic and normocephalic. Eyes: EOMI. There is no scleral icterus. Mouth: Mucosa is moist. Neck: Supple and nontender. There is no thyromegaly or adenopathy noted. Heart: Irregularly irregular with rate approximately 80/m. No murmurs or gallops are heard. Lungs: No wheezes or crackles are heard. Abdomen: Soft and nontender. No masses or guarding are noted. Extremities: There is no cyanosis edema or clubbing noted. Dorsalis pedis and posterior tibial pulses are trace palpable bilaterally. Neurologic: Mental status: She is talkative and a good historian. Cranial nerves: Smile is symmetric. Forehead wrinkles bilaterally. Tongue protrudes midline. EOMI. Motor: There is no pronator drift. Cerebellar: Finger to nose is intact bilaterally. Skin: Warm and dry Internal Med - H&P Results - Labs CBC & Chem 7: 12/24/17 02:25 12/24/17 05:26 Labs: BMP 12/24/17 05:26 Sodium 138 Potassium 3.6 Chloride 107 Carbon Dioxide 24 BUN 25 H Creatinine 1.52 H Glucose 104 Calcium 8.5 L - VTE Reasons for not Prescribing Prophylaxis: Not indicated-Anticoagulated or INR therapeutic
--- NOTE | 2017-12-24 15:17 | Discharge Summary ---
Date of Encounter: 12/24/17 Time of Encounter: 14:35 - Discharge Diagnosis (1) Atrial fibrillation with RVR Priority: Primary Status: Acute (2) Hypothyroidism Priority: Secondary Status: Chronic Qualifiers: Hypothyroidism type: unspecified Qualified Code(s): E03.9 - Hypothyroidism , unspecified (3) CKD (chronic kidney disease) stage 3, GFR 30-59 ml/min Priority: Secondary Status: Chronic (4) Hypertension Priority: Secondary Status: Chronic Qualifiers: Hypertension type: essential hypertension Qualified Code(s): I10 - Essential (primary) hypertension Hospital course: Ms. Toro is a 72 year old female who came to emergency room stating she had onset of sensation of rapid heart rate approximately 8 PM while doing usual leisure activities. She found blood pressure low at 90s/40s and found her pulse rate up to 150. When symptoms persisted for a few hours she came to emergency room. She was found to have AF with RVR and was admitted to [facility] floor for ongoing care needs. Initial orders were written by the emergency room physician. I saw her the afternoon of December 24 and performed the history physical and discharge. By the time I saw her she felt significantly improved and stable for discharge home. Her heart rate had decreased to approximately 80/m. Her blood pressure had improved to a satisfactory level. After significant discussion she agreed to begin Lanoxin at low dose for additional rate control from atrial fibrillation. Her PCP Dr. Crouch can monitor and adjust dose as needed. She will continue her other medications as at home. Her TSH was minimally elevated. Her PCP can determine if Synthroid dose should be adjusted in view of the AF/RVR. - Time Spent with Patient Total time spent providing and/or coordinating discharge services: - Discharge Medications Prescriptions: Digoxin [Lanoxin] 0.125 mg PO QOD #15 tablet Home Medications: Albuterol Neb [Proventil Neb] 2.5 mg IH Q4HR 04/15/15 [History] Metoprolol [Lopressor] 100 mg PO BID 04/15/15 [History] TraZODone 100 mg PO HS 04/15/15 [History] Albuterol Sulfate [Albuterol Inhaler] 2 puff IH QID 2 Days inhaler 04/18/15 [Rx ] Cyclobenzaprine [Flexeril] 10 mg PO HS 05/04/15 [History] Losartan Potassium [Cozaar] 100 mg PO DAILY 05/25/15 [History] Montelukast [Singulair] 10 mg PO DAILY 05/25/15 [History] Potassium Gluconate [Potassium] 99 mg PO QAM 05/25/15 [History] clonazePAM [Klonopin] 1 mg PO QID 04/03/17 [History] Pioglitazone [Actos] 45 mg PO DAILY 04/04/17 [History] Budesonide/Formoterol 160/4.5 [Symbicort 160/4.5] 2 puff IH BIDR 5 Days inhaler 04/05/17 [Rx] Apixaban [Eliquis] 5 mg PO DAILY 12/24/17 [History] Atorvastatin [Lipitor] 40 mg PO HS 12/24/17 [History] Digoxin [Lanoxin] 0.125 mg PO QOD #15 tablet 12/24/17 [Rx] Escitalopram [Lexapro] 20 mg PO DAILY 12/24/17 [History] Gabapentin [Neurontin] 100 mg PO TID 12/24/17 [History] Glimepiride [Amaryl] 4 mg PO BID #0 12/24/17 [Rx] Levothyroxine [Synthroid] 25 mcg PO DAILY 12/24/17 [History] Loratadine [Claritin] 10 mg PO DAILY 12/24/17 [History] Allergies/Adverse Reactions: 3 Allergy/AdvReac Type Severity Reaction Status Date / Time No Known Allergies Allergy Verified 04/03/17 17:14 Date of admission: 12/24/17 04:04 Primary care physician: Daya Crouch - Constitutional Vitals: Temp Pulse Resp BP Pulse Ox 98.0 F 82 14 120/72 91 12/24/17 10:13 12/24/17 10:13 12/24/17 10:35 12/24/17 10:13 12/24/17 10:35 - Patient Status Disposition: Home, Self-Care Condition: Good - Discharge Instructions Follow Up With: Daya Crouch MD [Primary Care Provider] - 1 week - Diet and Activity Activity: resume usual activities as tolerated Diet: diabetic diet - VTE Reasons for not Prescribing Prophylaxis: Not indicated-Anticoagulated or INR therapeutic
[2017-12-24 15:46] VITALS: BP 136/61
[2017-12-24] MEDS ORDERED: traZODone 50 MG TABLET PO SCH (21:00)
[2017-12-24 21:01] LABS: Triiodothyronine (T3) Total 1.26 ng/mL (0.87-1.78)
--- NOTE | 2017-12-28 12:44 | Electrocardiograph Report ---
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
== END 2017-12-24 17:45 | disposition home or self-care (01) ==
LOC: INPPIK 01:34 → EMEROOPIK 01:34 → INPPIK 04:14
PROVIDERS: ADMIT Internal Medicine; ATTEND Internal Medicine

== ENCOUNTER 2018-06-17 00:28 | Observation (INO) ==
--- NOTE | 2018-06-17 00:44 | Emergency Department Note ---
Disposition Clinical Impression: Chest pain Disposition: Admitted As Inpatient Condition: Fair Referrals: Daya Crouch MD [Primary Care Provider] - Forms: ED Satisfaction Letter Time of Disposition: 02:07 Chest Pain HPI - General Chief Complaint: ED Chest Pain Stated Complaint: CHEST PAIN Time Seen by Provider: 06/17/18 00:39 Source: patient Mode of arrival: ambulatory Limitations: no limitations Vital Signs Reviewed: Yes Nursing Notes Reviewed: Yes - History of Present Illness HPI Narrative: 72-year-old who presents to the emergency room who had sudden onset of midsternal chest pain approximately 6:00 this evening denies any fever chills lightheadedness or dizziness states states that she had some nausea but no vomi ting patient denies any rashes or lesions denies any recent weight gain or weight loss all systems have been reviewed and are otherwise Pt complaint: chest pain Onset (ago): hour(s) (6) Duration: intermittent Onset: during rest Pain Location: substernal, left chest Severity: moderate Severity scale (1-10): 6 Quality: aching Pain Radiation: none Improves with: nothing Worsens with: exertion Context: history of DVT/PE Associated symptoms: Reports: nausea, palpitations. Denies: vomiting, diaphoresis, dyspnea, sense of impending doom, syncope, fever, cough, leg swelling Treatments prior to arrival chest pain: aspirin, other (NTG) - Related Data Home Medications Medication Instructions Recorded Confirmed Metoprolol [Lopressor] 100 mg PO BID 04/15/15 06/17/18 TraZODone 100 mg PO HS 04/15/15 06/17/18 Cyclobenzaprine [Flexeril] 10 mg PO HS 05/04/15 06/17/18 Losartan Potassium [Cozaar] 100 mg PO DAILY 05/25/15 06/17/18 clonazePAM [Klonopin] 1 mg PO QID 04/03/17 06/17/18 Pioglitazone [Actos] 45 mg PO DAILY 04/04/17 06/17/18 Apixaban [Eliquis] 5 mg PO DAILY 12/24/17 06/17/18 Atorvastatin [Lipitor] 40 mg PO HS 12/24/17 06/17/18 Escitalopram [Lexapro] 20 mg PO DAILY 12/24/17 06/17/18 Gabapentin [Neurontin] 100 mg PO TID 12/24/17 06/17/18 Levothyroxine [Synthroid] 25 mcg PO DAILY 12/24/17 06/17/18 Previous Rx's Medication Instructions Recorded Budesonide/Formoterol 160/4.5 2 puff IH BIDR 5 Days inhaler 04/05/17 [Symbicort 160/4.5] Digoxin [Lanoxin] 0.125 mg PO QOD #15 tablet 12/24/17 Glimepiride [Amaryl] 4 mg PO BID #0 12/24/17 Albuterol Sulfate [Albuterol 2 puff IH Q4HR #1 hfa.aer.ad 03/04/18 Inhaler] Allergies Allergy/AdvReac Type Severity Reaction Status Date / Time No Known Allergies Allergy Verified 03/04/18 18:31 All systems ED: reviewed and negative except as stated. Review of Systems: As Per HPI Constitutional: Reports: weakness. Denies: fever, chills Eyes: Denies: eye pain, eye discharge ENT ED: Denies: ear pain, throat pain Cardiovascular: Reports: chest pain, palpitations Respiratory: Denies: cough, dyspnea Gastrointestinal: Reports: nausea. Denies: abdominal pain, vomiting Genitourinary: Denies: urgency, dysuria, frequency Musculoskeletal: Denies: back pain, neck pain Integumentary: Denies: rash, abrasion, lesions Neurological: Denies: headache, weakness Psychiatric: Denies: anxiety, depression Endocrine: Denies: fatigue, heat or cold intolerance Hematological/Lymphatic: Denies: easy bleeding Allergic/Immunologic: Denies: facial swelling Chest Pain PMH - Past Medical History Medical history: Reports: cancer, COPD, diabetes, hypertension, pulmonary embolus, thyroid disease Surgical history: Reports: non-contributory, appendectomy, cholecystectomy Psychiatric history: Reports: anxiety, depression 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: Reports: bilateral tubal ligation - Social History Smoking Status: Former smoker Alcohol use: Reports: none Drug use: Reports: none Physical Exam - General Limitations: no limitations General appearance: alert, in no apparent distress, anxious - Head Head exam: atraumatic, normocephalic, normal inspection - Eye Eye exam: Present: normal appearance - ENT ENT exam: normal exam, normal oropharynx, mucous membranes moist - Neck Neck exam: Present: normal inspection, full ROM, trachea midline - Chest Chest inspection: Present: normal inspection, symmetric chest wall rise - Respiratory Respiratory exam: Present: normal lung sounds bilaterally - Cardiovascular Cardiovascular exam: Present: regular rate, normal rhythm, normal heart sounds - Abdominal Exam Abdominal exam: Present: soft, Non-Tender. Absent: tenderness, distention, guarding, rebound, rigidity - Expanded Upper Extremity Exam Shoulder exam: Present: normal inspection, full ROM Arm exam: Present: normal inspection, full ROM Elbow exam: Present: normal inspection, full ROM Forearm/Wrist exam: Present: normal inspection, full ROM Hand exam: Present: normal inspection, full ROM Vascular exam: Normal: capillary refill, radial pulse - Expanded Lower Extremity Exam Hip/Pelvis exam: Present: normal inspection, full ROM Upper leg exam: Present: normal inspection, full ROM Knee exam: Present: normal inspection, full ROM Lower leg exam: Present: normal inspection, full ROM Ankle exam: Present: normal inspection, full ROM Foot/toe exam: Present: normal inspection, full ROM Neurovascular/Tendon exam: Absent: motor deficit, sensory deficit, tendon deficit - Back Exam Back exam: Present: normal inspection, full ROM. Absent: muscle spasm - Neurological Exam Neurological exam: Present: alert, oriented X3, CN II-XII intact, normal gait - Psychiatric Psychiatric exam: Present: normal affect, normal mood - Skin Skin exam: Present: warm, dry, intact, normal color Course Course Narrative: Patient was seen and evaluated patient was resting comfortably she had no pain at this time patient had enzymes performed we will admit for observation and repeat enzymes suspicious with her history of high cholesterol diabetes high blood pressure and history of DVT patient transferred to same day surgery center stable Vital Signs Temperature 97.4 F L 06/17/18 00:28 Pulse Rate 59 06/17/18 00:28 Respiratory Rate 16 06/17/18 00:28 Blood Pressure 135/98 06/17/18 00:28 O2 Sat by Pulse Oximetry 96 06/17/18 00:28 Temperature 97.4 F L 06/17/18 00:28 Pulse Rate 60 06/17/18 01:59 Respiratory Rate 16 06/17/18 01:59 Blood Pressure 111/64 06/17/18 01:59 O2 Sat by Pulse Oximetry 96 06/17/18 01:59 Oxygen Delivery Oxygen Delivery Room Air Chest Pain - Differential Diagnosis Likely: unstable angina pectoris, st elevation myocardial infraction, chest pain - Medical Records Medical records reviewed: Yes I reviewed the patient's medical records. - Lab Data Lab results reviewed: Yes I reviewed the patient's lab results. Result diagrams: 06/17/18 00:56 06/17/18 00:56 Lab Results 06/17/18 06/17/18 06/17/18 Range/Units 00:40 00:56 00:56 WBC 10.6 (4.3-11.1) K/mcL RBC 4.06 (3.82-4.97) M/mcL Hgb 11.6 (11.5-15.4) g/dL Hct 36.1 (35.3-44.9) % MCV 88.9 (83.0-100.0) fL MCH 28.6 (28.0-33.3) pg MCHC 32.1 (31.6-35.5) g/dL RDW 14.4 (11.5-14.5) % Plt Count 190 (140-400) K/mcL MPV 12.2 (9.4-12.4) fL Immature Gran % 0.5 (0-4) % Seg Neutrophils % 63.2 % Lymphocytes % 27.1 % Monocytes % 6.3 % Eosinophils % 2.6 % Basophils % 0.3 % Neutrophils # 6.7 (1.6-8.9) K/mcL Lymphocytes # 2.9 (0.6-4.6) K/mcL Monocytes # 0.7 (0.0-1.3) K/mcL Eosinophils # 0.3 (0.0-0.6) K/mcL Basophils # 0.0 (0.0-0.2) K/mcL PT 14.7 H (9.4-12.1) Seconds INR 1.3 APTT 32.2 (26.0-36.0) Seconds D-Dimer < 215 (0-500) ng/mLFEU Sodium (136-145) mEq/L Potassium (3.5-5.1) mEq/L Chloride (98-107) mEq/L Carbon Dioxide (23-29) mEq/L BUN (8-23) mg/dL Creatinine (0.60-1.20) mg/dL Est GFR ( Amer) (> 60) Est GFR (Non-Af Amer) (> 60) BUN/Creatinine Ratio (6-26) Glucose (70-105) mg/dL Calculated Osmolality (280-300) Calcium (8.6-10.3) mg/dL Total Bilirubin (0.3-1.0) mg/dL AST (13-39) Units/L ALT (7-52) Units/L Alkaline Phosphatase (34-104) Units/L Troponin I (< 0.04) ng/mL B-Natriuretic Peptide (Less than 100) pg/mL Serum Total Protein (6.4-8.9) g/dL Albumin (3.5-5.7) g/dL Globulin (2.4-3.5) g/dL Albumin/Globulin Ratio (1.1-2.2) TSH (0.340-5.600) mcIU/mL Urine Color Yellow (Yellow) Urine Clarity Clear (Clear) Urine pH 7.0 (5.0-8.0) pH Units Ur Specific [place] 1.015 (1.010-1.025) Urine Protein Negative (Neg-Trace) mg/dL Urine Glucose (UA) Normal (Normal) mg/dL Urine Ketones Negative (Negative) mg/dL Urine Blood Trace-intact H (Negative) Urine Nitrite Negative (Negative) Urine Bilirubin Negative (Negative) Urine Urobilinogen Normal (Normal) mg/dL Ur Leukocyte Esterase Trace H (Negative) Urine Microscopic WBC 3-5 H (0-3) per hpf Ur Squamous Epith Cells Few (None-Few) per lpf Ur Culture Indicated? YES A (NO) Digoxin (0.8-2.0) ng/mL 06/17/18 06/17/18 Range/Units 00:56 00:56 WBC (4.3-11.1) K/mcL RBC (3.82-4.97) M/mcL Hgb (11.5-15.4) g/dL Hct (35.3-44.9) % MCV (83.0-100.0) fL MCH (28.0-33.3) pg MCHC (31.6-35.5) g/dL RDW (11.5-14.5) % Plt Count (140-400) K/mcL MPV (9.4-12.4) fL Immature Gran % (0-4) % Seg Neutrophils % % Lymphocytes % % Monocytes % % Eosinophils % % Basophils % % Neutrophils # (1.6-8.9) K/mcL Lymphocytes # (0.6-4.6) K/mcL Monocytes # (0.0-1.3) K/mcL Eosinophils # (0.0-0.6) K/mcL Basophils # (0.0-0.2) K/mcL PT (9.4-12.1) Seconds INR APTT (26.0-36.0) Seconds D-Dimer (0-500) ng/mLFEU Sodium 138 (136-145) mEq/L Potassium 3.8 (3.5-5.1) mEq/L Chloride 103 (98-107) mEq/L Carbon Dioxide 28 (23-29) mEq/L BUN 14 (8-23) mg/dL Creatinine 1.20 (0.60-1.20) mg/dL Est GFR ( Amer) 54 L (> 60) Est GFR (Non-Af Amer) 44 L (> 60) BUN/Creatinine Ratio 12 (6-26) Glucose 139 H (70-105) mg/dL Calculated Osmolality 289 (280-300) Calcium 9.0 (8.6-10.3) mg/dL Total Bilirubin 0.4 (0.3-1.0) mg/dL AST 28 (13-39) Units/L ALT 16 (7-52) Units/L Alkaline Phosphatase 90 (34-104) Units/L Troponin I < 0.03 (< 0.04) ng/mL B-Natriuretic Peptide 193 H (Less than 100) pg/mL Serum Total Protein 6.7 (6.4-8.9) g/dL Albumin 3.4 L (3.5-5.7) g/dL Globulin 3.3 (2.4-3.5) g/dL Albumin/Globulin Ratio 1.0 L (1.1-2.2) TSH 4.896 (0.340-5.600) mcIU/mL Urine Color (Yellow) Urine Clarity (Clear) Urine pH (5.0-8.0) pH Units Ur Specific [place] (1.010-1.025) Urine Protein (Neg-Trace) mg/dL Urine Glucose (UA) (Normal) mg/dL Urine Ketones (Negative) mg/dL Urine Blood (Negative) Urine Nitrite (Negative) Urine Bilirubin (Negative) Urine Urobilinogen (Normal) mg/dL Ur Leukocyte Esterase (Negative) Urine Microscopic WBC (0-3) per hpf Ur Squamous Epith Cells (None-Few) per lpf Ur Culture Indicated? (NO) Digoxin 0.5 L (0.8-2.0) ng/mL - Radiology Data Radiology results reviewed: Yes I reviewed the patient's radiology results. ITS Impressions Chest X-Ray 06/17/18 00:40 IMPRESSION: No acute process. D/ / Adonis Summers MD / Adonis Summers MD Interpreting Provider: Adonis Summers MD - EKG Data EKG attestation: Yes I reviewed and interpreted this EKG. EKG results narrative: Sinus bradycardia with a PAC rate 49 [place] 140 QRS 85 QT [address] segment elevation ischemic or injury pattern identified at this time Heart Score - Score History: Slightly Suspicious EKG: Non Specific repolarisation Disturbance Age: Greater than 65 Risk Factors: Equal/Greater than 3 risk factor or history of atherosclerotic disease Troponin: Less than normal limit HEART Score Total: 5 Critical Care Time Critical Care Time: No
[2018-06-17 01:07] LABS: Basophils % 0.3 %; Eosinophils # 0.3 K/mcL (0.0-0.6); Eosinophils % 2.6 %; Hematocrit 36.1 % (35.3-44.9); Hemoglobin 11.6 g/dL (11.5-15.4); Immature Granulocytes % 0.5 % (0-4); Lymphocytes # 2.9 K/mcL (0.6-4.6); Lymphocytes % 27.1 %; Mean Corpuscular HGB Conc 32.1 g/dL (31.6-35.5); Mean Corpuscular Hemoglobin 28.6 pg (28.0-33.3); Mean Corpuscular Volume 88.9 fL (83.0-100.0); Mean Platelet Volume 12.2 fL (9.4-12.4); Monocytes # 0.7 K/mcL (0.0-1.3); Monocytes % 6.3 %; Neutrophils # 6.7 K/mcL (1.6-8.9); Platelet Count 190 K/mcL (140-400); Red Blood Count 4.06 M/mcL (3.82-4.97); Red Cell Distribution Width 14.4 % (11.5-14.5); Segmented Neutrophils % 63.2 %
[2018-06-17 01:21] LABS: INR 1.3; Prothrombin Time 14.7 Seconds (9.4-12.1)
[2018-06-17 01:23] LABS: Activated Partial Thrombo Time 32.2 Seconds (26.0-36.0)
[2018-06-17 01:33] LABS: Alanine Aminotransferase 16 Units/L (7-52); Albumin 3.4 g/dL (3.5-5.7); Alkaline Phosphatase 90 Units/L (34-104); Aspartate Amino Transferase 28 Units/L (13-39); BUN/Creatinine Ratio 12 (6-26); Bilirubin,Total 0.4 mg/dL (0.3-1.0); Blood Urea Nitrogen 14 mg/dL (8-23); Carbon Dioxide 28 mEq/L (23-29); Chloride 103 mEq/L (98-107); Digoxin 0.5 ng/mL (0.8-2.0); Globulin 3.3 g/dL (2.4-3.5); Glucose 139 mg/dL (70-105); Osmolality,Calculated 289 (280-300); Potassium 3.8 mEq/L (3.5-5.1); Sodium 138 mEq/L (136-145); Total Protein 6.7 g/dL (6.4-8.9); Troponin I < 0.03 ng/mL (< 0.04); eGFR For Non-African Americans 44 (> 60)
[2018-06-17 01:43] LABS: Bilirubin,Urine Negative (Negative); Blood,Urine Trace-intact (Negative); Clarity,Urine Clear (Clear); Color,Urine Yellow (Yellow); Glucose,Urine (UA) Normal (Normal); Ketones,Urine Negative (Negative); Leukocyte Esterase,Urine Trace (Negative); Nitrite,Urine Negative (Negative); Protein,Urine Negative (Neg-Trace); Specific Gravity,Urine 1.015 (1.010-1.025); Urobilinogen,Urine Normal (Normal)
[2018-06-17 01:45] LABS: Squamous Epithelial Cell,Urine Few per lpf (None-Few)
[2018-06-17 01:46] LABS: Thyroid Stimulating Hormone 4.896 mcIU/mL (0.340-5.600)
[2018-06-17 01:55] LABS: D-Dimer < 215 ng/mLFEU (0-500)
[2018-06-17] MEDS ORDERED: Naloxone 0.4 MG/ML INJ IVP PRN (03:11)
[2018-06-17] MEDS ORDERED: *HR* Digoxin 0.125 MG TABLET PO SCH (03:11)
[2018-06-17] MEDS ORDERED: Ibuprofen 400 MG TABLET PO PRN (03:11)
[2018-06-17] MEDS ORDERED: Ondansetron 4 MG/2 ML VIAL IVP PRN (03:11)
[2018-06-17 06:05] LABS: Basophils % 0.3 %; Eosinophils # 0.3 K/mcL (0.0-0.6); Eosinophils % 3.1 %; Hemoglobin 11.4 g/dL (11.5-15.4); Immature Granulocytes % 0.4 % (0-4); Lymphocytes # 3.1 K/mcL (0.6-4.6); Lymphocytes % 28.9 %; Mean Corpuscular HGB Conc 30.8 g/dL (31.6-35.5); Mean Corpuscular Hemoglobin 27.7 pg (28.0-33.3); Monocytes # 0.6 K/mcL (0.0-1.3); Monocytes % 5.6 %; Neutrophils # 6.6 K/mcL (1.6-8.9); Platelet Count 156 K/mcL (140-400); Red Blood Count 4.11 M/mcL (3.82-4.97); Red Cell Distribution Width 14.5 % (11.5-14.5); Segmented Neutrophils % 61.7 %
[2018-06-17] MEDS ORDERED: Levothyroxine 25 MCG TABLET PO SCH (06:30)
[2018-06-17 07:16] LABS: Calcium 9.6 mg/dL (8.6-10.3)
[2018-06-17] MEDS: *HR* Glimepiride 2 MG TABLET PO SCH ×2 (08:47→15:15)
[2018-06-17] MEDS: clonazePAM 0.5 MG TABLET PO SCH ×2 (08:47→12:17)
[2018-06-17] MEDS: Gabapentin 100 MG CAPSULE PO SCH ×2 (08:47→15:15)
[2018-06-17] MEDS ORDERED: Apixaban 5 MG TABLET PO SCH (09:00)
[2018-06-17] MEDS ORDERED: Budesonide/Formoterol 160/4.5 1 PUFF INH IH SCH (10:00)
--- NOTE | 2018-06-17 14:52 | Internal Med History&Physical ---
Date of Encounter: 06/17/18 Time of Encounter: 14:20 Assessment and Plan (1) Chest pain Current visit: Yes Status: Acute Etiology not obvious. D-dimer returned < 215. Repeat cardiac enzymes were ordered through emergency room. Further workup will be done as needed. Qualifiers: Chest pain type: precordial pain Qualified Code(s): R07.2 - Precordial pain (2) CKD (chronic kidney disease) stage 3, GFR 30-59 ml/min Current visit: No Status: Chronic Monitor renal indices. (3) Hypertension Current visit: No Status: Chronic Continue Lopressor and Cozaar. Qualifiers: Hypertension type: essential hypertension Qualified Code(s): I10 - Essential (primary) hypertension Internal Medicine - H&P: HPI Chief complaint: Chest pain Admitted From: Emergency Dept Plans for Post Hospital Care: Home History of present illness: Ms. Toro is a 72 year old female who came to emergency room stating she had onset of chest discomfort while at leisure proximate 6 PM. She describes it as a pressure sensation in her mid chest. It radiated to her back. There was no dyspnea and diaphoresis or nausea associated. She took a Tums without relief. States that old Nitrostat without relief. When the pain persisted she decided to come to emergency room. She was evaluated and was felt deserved admission for rule out DE She states she is pain-free at present time. She reports she has had similar pain on occasions in the past, most recently February 2018 when she was admitted to [facility] with diagnosis of AF with RVR. She reports she has had several episodes of perceived atrial fibrillation since her February 2018 discharge. She has not told her PCP about the sensations. She is on Eliquis, Lopressor, Cozaar and Lanoxin. She was diagnosed with atrial fibrillation initially July 2017 while in [place]. She had pulmonary embolism also documented during the same hospital stay. She has been on Eliquis since that incident and denies missing doses. She has history of hypertension but denies DE heart failure or angina. She does have dyspnea on exertion. She had limited echocardiogram 01/18/2015 which showed LVEF of 60% with no pericardial effusion present. She had an echocardiogram 10/17/2014 which showed LVEF 55-60% with indeterminant diastolic function. There was mild TR. She had Regadenoson stress test 09/18/2015 which showed frequent PACs, LVEF greater than 70%, small fixed apical inferior and apical fixed defect suggestive of artifact, and perfusion imaging negative for ischemia or infarct. Past Med Surg Social Fam HX - Past Medical History Medical history: atrial fibrillation, cancer, COPD, diabetes, hypertension, pulmonary embolus, thyroid disease Additional medical history: Breast Ca. Psychiatric history: anxiety, depression - Past Surgical History Surgical History: non-contributory, appendectomy, cholecystectomy, orthopedic, other Additional surgical history: Right mastectomy- 2015; sinus tumor removal; rotator cuff surgery - Social History Smoking Status: Former smoker Smokeless Tobacco Status: No Alcohol use: none Drug use: none - Family History Mother Living Status: Hx Family Cardiac Disorders: Yes (Pacemaker) Father Living Status: Hx Family Cancer: Yes (Rectal Ca.) Internal Medicine - H&P: Meds Metoprolol [Lopressor] 100 mg PO BID 04/15/15 [History] TraZODone 100 mg PO HS 04/15/15 [History] Cyclobenzaprine [Flexeril] 10 mg PO HS 05/04/15 [History] Losartan Potassium [Cozaar] 100 mg PO DAILY 05/25/15 [History] clonazePAM [Klonopin] 1 mg PO QID 04/03/17 [History] Pioglitazone [Actos] 45 mg PO DAILY 04/04/17 [History] Budesonide/Formoterol 160/4.5 [Symbicort 160/4.5] 2 puff IH BIDR 5 Days inhaler 04/05/17 [Rx] Apixaban [Eliquis] 5 mg PO DAILY 12/24/17 [History] Atorvastatin [Lipitor] 40 mg PO HS 12/24/17 [History] Digoxin [Lanoxin] 0.125 mg PO QOD #15 tablet 12/24/17 [Rx] Escitalopram [Lexapro] 20 mg PO DAILY 12/24/17 [History] Gabapentin [Neurontin] 100 mg PO TID 12/24/17 [History] Glimepiride [Amaryl] 4 mg PO BID #0 12/24/17 [Rx] Levothyroxine [Synthroid] 25 mcg PO DAILY 12/24/17 [History] Albuterol Sulfate [Albuterol Inhaler] 2 puff IH Q4HR #1 hfa.aer.ad 03/04/18 [Rx] Allergy/AdvReac Type Severity Reaction Status Date / Time No Known Allergies Allergy Verified 03/04/18 18:31 All Systems PM: A 10-system review of systems was performed and is negative for pertinent fi ndings except as documented above in the HPI. Review of systems: Review of systems from her February 2018 [facility] hospitalization were reviewed and revised as below. Gen.: Her weight has increased from 84.141 kg on 04/03/2017 to present weight of 86.183 kg. Cardiovascular: As per history of present illness Respiratory: She smoked from age [age] a total of 34 years up to 1 pack per day. She had PFTs 03/25/2018 which showed FVC 67% predicted, FEV1 63% predicted, FEV1/FVC 71%, and MVV 32% predicted. She was diagnosed with mild restrictive disease and probable obstructive disease. She does not wear home oxygen. GI: She has had cholecystectomy. She denies disorders of her liver or exocrine pancreas. : She has been diagnosed with chronic kidney disease stage III. She does not follow with a clinical fellow. She denies other kidney or bladder disorders Neurologic: She denies large distribution strokes or seizures. Endocrine: She was diagnosed with DM 2 in 1992. She has hyperlipidemia but denies thyroid disease Hematology/oncology: She had right mastectomy April 2014 for breast cancer. She believes it was curative. She denies other internal malignancies or anemia Psychiatric: She has anxiety and depression with panic attacks [place] skeletal: She has chronic low back pain. She denies gout or other bone joint or muscle disorders. - Constitutional Vitals: Temp Pulse Resp BP Pulse Ox 98.5 F 55 14 127/66 98 06/17/18 10:55 06/17/18 10:55 06/17/18 12:43 06/17/18 10:55 06/17/18 12:43 Exam: Gen.: She is a well-developed well-nourished female resting comfortably in bed who appears in no acute distress. She denies pain or dyspnea at present time. HEENT: Head is atraumatic and normocephalic. Eyes: EOMI. There is no scleral icterus. Mouth: Mucosa is moist. Neck: Supple and nontender. There is no thyromegaly or adenopathy noted. Heart: Regular without murmurs gallops or ectopics Chest: She has nontender chest wall to palpation Lungs: No wheezes or crackles are heard. Abdomen: Soft and nontender. No masses or guarding are noted. Extremities: There is no cyanosis edema or clubbing noted. Dorsalis pedis and posttibial pulses are 1-2 over 2 bilaterally. Neurologic: Mental status: She is talkative and a good historian. Cranial nerves: Smile is symmetric. Forehead wrinkles bilaterally. Tongue protrudes midline. EOMI. Motor: There is no pronator drift. Cerebellar: Finger to nose is intact bilaterally. Skin: Warm and dry Internal Med - H&P Results - Labs CBC & Chem 7: 06/17/18 04:40 06/17/18 04:40 Labs: Short CBC 06/17/18 06/17/18 Range/Units 00:56 04:40 WBC 10.6 10.6 (4.3-11.1) K/mcL Hgb 11.6 11.4 L (11.5-15.4) g/dL Hct 36.1 37.0 (35.3-44.9) % Plt Count 190 156 (140-400) K/mcL Neutrophils # 6.7 6.6 (1.6-8.9) K/mcL BMP 06/17/18 06/17/18 00:56 04:40 Sodium 138 136 Potassium 3.8 4.0 Chloride 103 104 Carbon Dioxide 28 23 BUN 14 14 Creatinine 1.20 1.15 Glucose 139 H 85 Calcium 9.0 9.6 Cardiac Enzymes 06/17/18 06/17/18 Range/Units 00:56 04:40 Troponin I < 0.03 < 0.03 (< 0.04) ng/mL Liver Function 06/17/18 Range/Units 00:56 Total Bilirubin 0.4 (0.3-1.0) mg/dL AST 28 (13-39) Units/L ALT 16 (7-52) Units/L Alkaline Phosphatase 90 (34-104) Units/L Albumin 3.4 L (3.5-5.7) g/dL Urine 06/17/18 Range/Units 00:40 Urine Color Yellow (Yellow) Urine Clarity Clear (Clear) Urine pH 7.0 (5.0-8.0) pH Units Ur Specific [place] 1.015 (1.010-1.025) Urine Protein Negative (Neg-Trace) mg/dL Urine Glucose (UA) Normal (Normal) mg/dL - Impressions ITS Impressions Chest X-Ray 06/17/18 00:40 IMPRESSION: No acute process. D/ / Adonis Summers MD / Adonis Summers MD Interpreting Provider: Adonis Summers MD
--- NOTE | 2018-06-17 15:04 | Discharge Summary ---
Orders not resulted at time of discharge: Pending orders 06/17/18 00:40 Culture,Urine [RM] Stat Date of Encounter: 06/17/18 Time of Encounter: 15:15 - Discharge Diagnosis (1) Chest pain Priority: Primary Status: Resolved Qualifiers: Chest pain type: precordial pain Qualified Code(s): R07.2 - Precordial pain (2) CKD (chronic kidney disease) stage 3, GFR 30-59 ml/min Priority: Secondary Status: Chronic (3) Hypertension Priority: Secondary Status: Chronic Qualifiers: Hypertension type: essential hypertension Qualified Code(s): I10 - Essential (primary) hypertension Hospital course: Ms. Toro is a 72 year old female who came to emergency room stating she had onset of chest discomfort while at leisure proximate 6 PM. She describes it as a pressure sensation in her mid chest. It radiated to her back. There was no dyspnea and diaphoresis or nausea associated. She took a Tums without relief. States that old Nitrostat without relief. When the pain persisted she decided to come to emergency room. She was evaluated and was felt deserved admission for rule out MT. Initial orders were written by the emergency room physician. I saw her on June 17 and performed the history and physical. Repeat cardiac enzymes showed no evidence myocardial damage. She had no further chest pain after coming to the hospital. The etiology of the pain was not determined with certainty. Orthostatic vital signs showed blood pressure decreasing from 142/65 lying to 114/68 standing. I told her since her baseline blood pressure was marginally controlled it was probably best to simply allow for orthostasis upon standing before attempting ambulation. Her PCP can monitor and prescribe additional treatment is needed. She felt stable for discharge on the afternoon of June 17. She will follow with her PCP Dr. Crouch within 1 week. - Time Spent with Patient Total time spent providing and/or coordinating discharge services: - Discharge Medications Prescriptions: Continue Albuterol Sulfate [Albuterol Inhaler] 2 puff IH Q4HR #1 hfa.aer.ad TraZODone 100 mg PO HS Metoprolol [Lopressor] 100 mg PO BID Cyclobenzaprine [Flexeril] 10 mg PO HS Losartan Potassium [Cozaar] 100 mg PO DAILY clonazePAM [Klonopin] 1 mg PO QID Pioglitazone [Actos] 45 mg PO DAILY Budesonide/Formoterol 160/4.5 [Symbicort 160/4.5] 2 puff IH BIDR 5 Days inhaler Escitalopram [Lexapro] 20 mg PO DAILY Atorvastatin [Lipitor] 40 mg PO HS Gabapentin [Neurontin] 100 mg PO TID Levothyroxine [Synthroid] 25 mcg PO DAILY Apixaban [Eliquis] 5 mg PO DAILY Digoxin [Lanoxin] 0.125 mg PO QOD #15 tablet Glimepiride [Amaryl] 4 mg PO BID #0 Home Medications: Metoprolol [Lopressor] 100 mg PO BID 04/15/15 [History] TraZODone 100 mg PO HS 04/15/15 [History] Cyclobenzaprine [Flexeril] 10 mg PO HS 05/04/15 [History] Losartan Potassium [Cozaar] 100 mg PO DAILY 05/25/15 [History] clonazePAM [Klonopin] 1 mg PO QID 04/03/17 [History] Pioglitazone [Actos] 45 mg PO DAILY 04/04/17 [History] Budesonide/Formoterol 160/4.5 [Symbicort 160/4.5] 2 puff IH BIDR 5 Days inhaler 04/05/17 [Rx] Apixaban [Eliquis] 5 mg PO DAILY 12/24/17 [History] Atorvastatin [Lipitor] 40 mg PO HS 12/24/17 [History] Digoxin [Lanoxin] 0.125 mg PO QOD #15 tablet 12/24/17 [Rx] Escitalopram [Lexapro] 20 mg PO DAILY 12/24/17 [History] Gabapentin [Neurontin] 100 mg PO TID 12/24/17 [History] Glimepiride [Amaryl] 4 mg PO BID #0 12/24/17 [Rx] Levothyroxine [Synthroid] 25 mcg PO DAILY 12/24/17 [History] Albuterol Sulfate [Albuterol Inhaler] 2 puff IH Q4HR #1 hfa.aer.ad 03/04/18 [Rx] Allergies/Adverse Reactions: Allergy/AdvReac Type Severity Reaction Status Date / Time No Known Allergies Allergy Verified 03/04/18 18:31 Date of admission: 06/17/18 02:39 Primary care physician: Daya Crouch - Constitutional Vitals: Temp Pulse Resp BP Pulse Ox 98.5 F 55 14 127/66 98 06/17/18 10:55 06/17/18 10:55 06/17/18 12:43 06/17/18 10:55 06/17/18 12:43 - Patient Status Disposition: Home, Self-Care Condition: Fair - Discharge Instructions Follow Up With: Daya Crouch MD [Primary Care Provider] - 1 week - Diet and Activity Activity: resume usual activities as tolerated Diet: advance to your usual diet
[2018-06-17 15:11] VITALS: BP 142/65
--- NOTE | 2018-06-17 21:00 | Electrocardiograph Report ---
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
== END 2018-06-17 16:22 | disposition home or self-care (01) ==
LOC: EMEROOPIK 00:28 → INPPIK 00:28
PROVIDERS: ADMIT Internal Medicine; ATTEND Internal Medicine